=== PATIENT | male | born 2000 | race African-American/Black ===

== ENCOUNTER 2023-11-09 17:31 | Emergency (ER) | payer OTHER, SELFPAY ==
--- NOTE | ~2023-11-09 | CT_ITS ---
EXAMINATION: CT abdomen pelvis w con DATE: 11/09/2023 21:39 INDICATION: sepsis TECHNIQUE: Computed tomography (CT) of the abdomen and pelvis was performed with 100 mL Omnipaque-350 intravenous contrast. Automated exposure control and iterative reconstruction technique were employe d. The dose-length product was 602.30 mGy-cm. COMPARISON: Ultrasound scrotum, same date at 5:39 PM. FINDINGS: Lower thorax: Unremarkable Liver: Normal. Biliary/Gallbladder: Gallbladder is normal. No bile duct dilation. Pancreas: No mass or duct dilation. Spleen: Normal. Adrenals:No mass. Kidneys: No suspicious mass, obstructing stone, or hydronephrosis. Simple right midpole cyst. GI tract: Mild distal esophageal and gastric wall edema No small or large bowel dilation. Normal appe ndix. Mesentery/Peritoneum: No ascites, mass, or free air. Retroperitoneum: No mass. Pelvis: Hyperemia of the right testicle and scrotum. Normal-appearing incompletely distended urinary bladder. Mild prostate enlargement. Mild hyperemia of the right seminal vesicles. Trace adjacent free fluid/inflammatory change. Soft Tissues: Soft tissues and body wall unremarkable. Bones: No acute osseous finding. IMPRESSION: Hyperemic left testicle and scrotum, consistent with prior sonographic findings of right epididymoorc hitis. Mild prostate enlargement with hyperemia of the right seminal vesicles and trace adjacent fluid, cons ider prostatitis and/or seminal vesiculitis in the differential. Reviewed, dictated and finalized at location K. CASE ASSEMBLER IMPRESSION: Hyperemic left testicle and scrotum, consistent with prior sonographic findings of right epididymoorchitis. Mild prostate enlargement with hyperemia of the right seminal vesicles and trac e adjacent fluid, consider prostatitis and/or seminal vesiculitis in the differ ential.
--- NOTE | ~2023-11-09 | US_ITS ---
EXAMINATION: US scrotum doppler DATE: 11/09/2023 18:02 INDICATION: Right testicular pain and swelling. TECHNIQUE: Grayscale and Doppler ultrasound images of the testes were obtained. COMPARISON: None. FINDINGS: The right testis measures 5.5 x 2.7 x 3.9 cm. The left testis measures 3.9 x 1.9 x 1.9 cm. No testicular mass. There is normal vascular flow to both testes. The right epididymis is thickened a nd hyperemic. The left epididymis is normal with normal vascular flow. Small right varicocele There i s minimal fluid about the right epididymis. IMPRESSION: Findings concerning for right epididymoorchitis. Reviewed, dictated and finalized at location K. MEDIA STRATEGIST
[2023-11-09 17:34] VITALS: BP 138/67; PULSE 92; RESP 20; TEMP 36.7; O2SAT 100
--- NOTE | 2023-11-09 17:38 | ED.MALEGU ---
HPI - Male Genitourinary General Chief complaint: Urogenital-Male <Berta Stockton PA-C - Last Filed: 11/10/23 09:56> Stated complaint: test torsion <SONIYA Bolden Last Filed: 11/10/23 09:56> Time Seen by Provider: 11/09/23 19:45 <Berta Stockton PA-C - Last Filed: 11/10/23 09:56> Source: patient <SONIYA Bolden Last Filed: 11/10/23 09:56> Mode of arrival: ambulatory <SONIYA Bolden Last Filed: 11/10/23 09:56> Limitations: no limitations <SONIYA Bolden Last Filed: 11/10/23 09:56> History of Present Illness HPI Narrative: This is a 23-year-old male who presents to the emergency department for testicular pain. Ongoing intermittently over the last couple of weeks. Reports associated dysuria an abnormal penile discharge. Reports he did have recent STD testing which was negative. Denies fevers. <Berta Stockton PA-C - Last Filed: 11/10/23 09:56> Related Data Allergies/Adverse reactions: Allergies Allergy/AdvReac Type Severity Reaction Status Date / Time No Known Allergies Allergy Verified 11/09/23 20:30 <Berta Stockton PA-C - Last Filed: 11/10/23 09:56> Review of Systems Review of Systems: CONSTITUTIONAL: Denies fever GASTROINTESTINAL: Reports abdominal pain, and diarrhea. GENITOURINARY: Reports dysuria. Denies hematuria. <SONIYA Bolden Last Filed: 11/10/23 09:56> All systems reviewed & are unremarkable except as noted in HPI and below <Berta Stockton PA-C - Last Filed: 11/10/23 09:56> [facility] Past Medical History Medical History: Medical History (Updated 11/10/23 @ 00:00 by Background Daemon) No active medical problems <SONIYA Bolden Last Filed: 11/10/23 09:56> Social History Social History: Social History (Updated 11/09/23 @ 17:42 by Berta Stockton PA-C) Substance use: never <Berta Stockton PA-C - Last Filed: 11/10/23 09:56> Exam Narrative: GENERAL: Well-appearing, well-nourished, and in no acute distress. HEAD: Normocephalic, atraumatic. EYES: EOMI. CHEST: No respiratory distress. HEART: Regular rate EXTREMITIES: Normal range of motion. No edema. SKIN: Warm, dry, no rash. NEURO: No focal deficits. Alert and oriented x3. PSYCH: Normal mood and affect MALE GENITAL: Testicular exam minimal tenderness with mild erythema and warmth. Pt manipulates testicles without pain <Berta Stockton PA-C - Last Filed: 11/10/23 09:56> GENERAL: Well-appearing, well-nourished, and in no acute distress. HEAD: Normocephalic, atraumatic. EYES: EOMI. CHEST: No respiratory distress. HEART: Regular rate EXTREMITIES: Normal range of motion. No edema. SKIN: Warm, dry, no rash. NEURO: No focal deficits. Alert and oriented x3. PSYCH: Normal mood and affect testicular exam minimal tenderness with mild erythema and warmth. pt manipulates testicles without pain <Isabel Goldberg MD - Last Filed: 11/09/23 23:09> Course Vital Signs Vital signs: Vital Signs Temperature 98.1 F 11/09/23 17:34 Pulse Rate 92 11/09/23 17:34 Respiratory Rate 20 11/09/23 17:34 Blood Pressure 138/67 11/09/23 17:34 Pulse Oximetry 100 11/09/23 17:34 Oxygen Delivery Room Air 11/09/23 17:34 Temperature 100.6 F H 11/09/23 21:03 Pulse Rate 92 11/09/23 17:34 Respiratory Rate 20 11/09/23 17:34 Blood Pressure 138/67 11/09/23 17:34 Pulse Oximetry 100 11/09/23 17:34 Oxygen Delivery Room Air 11/09/23 17:34 <Berta Stockton PA-C - Last Filed: 11/10/23 09:56> Vital Signs Temperature 98.1 F 11/09/23 17:34 Pulse Rate 92 11/09/23 17:34 Respiratory Rate 20 11/09/23 17:34 Blood Pressure 138/67 11/09/23 17:34 Pulse Oximetry 100 11/09/23 17:34 Oxygen Delivery Room Air 11/09/23 17:34 Temperature 100.6 F H 11/09/23 21:03 Pulse Rate 92 11/09/23 17:34 Respiratory Rate 20 11/09/23 17:34 Blood Pressure 138/67 11/09/23 17:34
[2023-11-09 18:13] LABS: Appearance Urine Turbid (Clear); Bacteria Urine Rare /hpf; Bilirubin Urine Negative (Negative); Blood Urine 2+ (Negative); Color Urine Dark Yellow (Yellow); Glucose Urine UA Negative (Negative); Ketones Urine 1+ mg/dL (Negative); Leukocyte Esterase Ur 2+ LEU/UL (Negative); Mucus Urine Present /lpf; Nitrate Urine Negative (Negative); Non Pathogenic Casts 0-2; Protein Urine 3+ mg/dL (Negative); Specific Grav Ur 1.032 (1.001-1.035); Squamous Epithelial Cell Urine None seen /hpf (Few); WBC Urine >100 /hpf
[2023-11-09 18:20] LABS: Add Urine Microscopic? YES
[2023-11-09 19:58] LABS: Chlamydia trachomatis NOT DETECTED (NOT DETECTE); Neisseria gonorrhoeae PCR NOT DETECTED (NOT DETECTE)
[2023-11-09] MEDS: SODIUM CHLORIDE 0.9% IV 1,000 ML 999 ML IV CONT (20:53)
[2023-11-09] MEDS: KETOROLAC 15 MG/ML VIAL (*BKC) IV PUSH (20:55)
[2023-11-09] MEDS: cefTRIAXone 2 GM/NS 100 ML 2 GM/100 ML BAG IVPB (20:55)
[2023-11-09 21:03] VITALS: TEMP 38.1
[2023-11-09 21:03] LABS: Basophils Percent Auto 0.2 % (0.2-1.2); Hematocrit 48.8 % (42.0-52.0); Hemoglobin 15.9 g/dL (14.0-18.0); Immature Granulocyte Absolute 0.04 K/mm3 (0.00-0.031); Immature Granulocyte Percent A 0.4 % (0-0.5); Lymphocytes Absolute Auto 0.92 K/mm3 (0.9-3.2); Lymphocytes Percent Auto 9.4 % (18.3-44.2); Mean Corpuscular HGB Conc 32.6 g/dl (32-36); Mean Corpuscular Volume 85.9 fl (80-100); Mean Platelet Volume 9.5 fl (7.4-10.4); Monocytes Absolute Auto 0.8 K/mm3 (0.1-0.6); Neutrophils Absolute Auto 8.1 K/mm3 (1.3-6.7); Platelet Count Result 214 k/mm3 (150-375); Red Blood Count 5.68 M/mm3 (4.6-6.20); Red Cell Distribution Width 12.3 % (11.5-14.5); White Blood Count 9.8 K/mm3 (4.5-10.0)
[2023-11-09 21:23] LABS: Alanine Aminotransferase 16 U/L (6-50); Albumin Level 4.6 g/dL (3.5-5.1); Alkaline Phosphatase 78 U/L (38-126); Anion Gap 14 mmol/L (8-16); Aspartate Amino Transferase 32 U/L (17-59); Bilirubin,Total 0.5 mg/dL (0.2-1.3); Blood Urea Nitrogen 17 mg/dL (9-20); Calcium 9.8 mg/dL (8.4-10.2); Carbon Dioxide 28 mmol/L (22-30); Chloride 93 mmol/L (98-107); Estimated CRCL calculation 120 ml/min; Estimated Glomerular Filt Rate > 60; Glucose 104 mg/dL (65-110); Lactic Acid Reflex 1.6 mmol/L (0.7-2.0); Potassium 3.6 mmol/L (3.4-5.0); Sodium 135 mmol/L (137-145)
[2023-11-09] MEDS: DOXYCYCLINE 100 MG/NS 100 ML 100 MG/100 ML BAG IVPB (21:56)
== END 2023-11-09 23:33 | disposition home or self-care (01) ==
PROVIDERS: Physician Assistant; Emergency Provider Emergency Medicine
DX: N45.3 Epididymo-orchitis (principal)
CPT/HCPCS: 36415; 74177; 76870; 80053; 81001; 83605; 85025; 87040; 87086; 87491; 87591; 87661; 93976; 96365; 96367; 96375; 99284; J0696; J1885; J7030; Q9967